=== PATIENT | male | born 1950 | race Caucasian/White ===

== ENCOUNTER 2024-03-20 08:47 | Day surgery (SDC) | payer OTHER ==
[~2024-03-20] VITALS: Ht 172.7 cm; Wt 89.1 kg
[~2024-03-20 08:47] MED LIST: CHONDR SULF A SOD/HYALURONATE 1.05 ML KIT IO ONE; FentaNYL CITRATE PF 100 MCG/2 ML VIAL ONE; KETOROLAC TROMETHAMINE 0.5% 5 ML OPHTHALMIC SOLUTION ONE; MIDAZOLAM HCL 2 MG/2 ML VIAL ONE; MOXIFLOXACIN HCL 0.5% 3 ML OPHTHALMIC SOLUTION ONE; PHENYLEPHRINE HCL 2.5% 2 ML OPHTHALMIC SOLUTION ONE; RINGERS SOLUTION,LACTATED 500 ML IV ONE; TROPICAMIDE 1% 2 ML OPHTHALMIC SOLUTION ONE
[2024-03-20] MEDS: KETOROLAC TROMETHAMINE 0.5% 5 ML OPHTHALMIC SOLUTION OS SCH (09:40)
[2024-03-20] MEDS: TROPICAMIDE 1% 2 ML OPHTHALMIC SOLUTION OS SCH (09:40)
[2024-03-20] MEDS: RINGERS SOLUTION,LACTATED 500 ML IV ONE (09:40)
[2024-03-20] MEDS: MOXIFLOXACIN HCL 0.5% 3 ML OPHTHALMIC SOLUTION OS SCH (09:41)
[2024-03-20] MEDS: PHENYLEPHRINE HCL 2.5% 2 ML OPHTHALMIC SOLUTION OS SCH (09:41)
[2024-03-20 09:56] LABS: GLUCOMETER DEV NAME(LOC) SDS.; GLUCOSE,POINT OF CARE 84 MG/DL (70-110)
[2024-03-20] MEDS ORDERED: FAMO20 PO (11:09)
[2024-03-20] MEDS ORDERED: MONT-35 PO (11:09)
[2024-03-20] MEDS ORDERED: BUSP15 PO (11:09)
[2024-03-20] MEDS ORDERED: GABA-1181 PO (11:09)
[2024-03-20] MEDS ORDERED: METF-1211 PO (11:09)
[2024-03-20] MEDS ORDERED: MEMA10TA24 PO (11:09)
[2024-03-20] MEDS ORDERED: DULO-113 PO (11:09)
[2024-03-20] MEDS ORDERED: EMPA25TA3 PO (11:09)
[2024-03-20] MEDS ORDERED: CARV3 PO (11:09)
[2024-03-20] MEDS ORDERED: ASPI-1444 PO (11:09)
[2024-03-20] MEDS ORDERED: LISI-893 PO (11:09)
[2024-03-21] MEDS: BALANCED SALT 15 ML OPHTHALMIC IRRIG.SOLN ONE (13:41)
[2024-03-21] MEDS: EPINEPHrine 1:1,000 [1 MG/ML] VIAL ONE (13:41)
[2024-03-21] MEDS: LIDOCAINE/PF 1% 2 ML VIAL ONE (13:42)
[2024-03-21] MEDS: POVIDONE-IODINE 5% 30 ML OPHTHALMIC SOLUTION ONE (13:46)
[2024-03-21] MEDS: TETRACAINE HCL/PF 0.5% 4 ML OPHTHALMIC SOLUTION ONE (13:46)
== END 2024-03-20 12:40 | disposition home or self-care (01) ==
LOC: SURGERY 08:47
PROVIDERS: ATTEND Ophthalmology
DX: E11.36 Type 2 diabetes mellitus with diabetic cataract (principal); H25.12 Age-related nuclear cataract, left eye; R94.31 Abnormal electrocardiogram [ECG] [EKG]; J45.909 Unspecified asthma, uncomplicated; G25.81 Restless legs syndrome; E78.00 Pure hypercholesterolemia, unspecified; M19.90 Unspecified osteoarthritis, unspecified site; Z95.2 Presence of prosthetic heart valve; Z79.899 Other long term (current) drug therapy; Z98.42 Cataract extraction status, left eye; Z98.890 Other specified postprocedural states; Z79.84 Long term (current) use of oral hypoglycemic drugs; Z79.4 Long term (current) use of insulin
CPT/HCPCS: 66984; 82962; 93005; J7321; J0171; J3010; J3490; J2250; J7120; V2632